=== PATIENT | female | born 1990 | race American Indian/Alaskan Native ===

== ENCOUNTER 2020-11-18 05:21 | Emergency (ER) | payer MEDICAID ==
[2020-11-18] MEDS ORDERED: IBUPROFEN 800 MG TAB PO ONE (05:51)
[2020-11-18 05:54] VITALS: BP 158/91
--- NOTE | 2020-11-18 06:02 | Emergency Department Report ---
Upper Extremity - HPI Stated Complaint: SHOULDER INJURY Time Seen by Provider: 11/18/20 05:51 Upper Extremity: Left Shoulder (Pt states she tripped and fell last night; landed onto left shoulder) Occurred When: 1 Day Mechanism: Fall Severity: severe Symptoms: Yes Pain with Movement, Yes Limited Range of Movement, No Deformity, No Numbness, No Weakness, No Swelling, No Bruising/Ecchymosis, No Laceration or Abrasion Other History: Patient presented to the ER today complaining of left shoulder pain. Patient states that she tripped and fell last night and landed on her left shoulder. Since then she has been having difficulty moving the shoulder due to the pain. He has not taken any medications to help with pain. She reports no numbness, tingling or weakness to the shoulder. She denies any neck pain or head injury. ED Review of Systems ROS: Stated complaint: SHOULDER INJURY Other details as noted in HPI Comment: All other systems reviewed and negative Musculoskeletal: arthralgia ED Past Medical Hx - Past Medical History Previous Medical History?: Yes Hx Hypertension: Yes - Surgical History Past Surgical History?: Yes Additional Surgical History: x2 - Social History Smoking Status: Never Smoker Substance Use Type: None - Medications Home Medications: Home Medications Medication Instructions Recorded Confirmed Last Taken Type Diphenoxylate/Atropine [Lomotil] 1 tab PO QID PRN #20 tablet 02/20/16 Unknown Rx Promethazine [Phenergan TAB] 25 mg PO Q6HR PRN #20 tab 02/20/16 Unknown Rx Promethazine [Phenergan] [address] Q6HR PRN #10 supp.rect 02/20/16 Unknown Rx Cyclobenzaprine [Flexeril] 10 mg PO TID PRN #30 tablet 11/18/20 Unknown Rx Ibuprofen [Motrin] 800 mg PO Q8HR PRN #30 tablet 11/18/20 Unknown Rx Upper Extremity Exam - Exam General: Vital signs noted. No distress. Alert and acting appropriately. Head and Torso: Yes HEENT Abnormality Shoulder Exam: Yes Shoulder Tenderness, Yes Clavicle Tenderness, Yes AC Joint Tenderness, No Normal Range of Motion in Shoulder (Range of motion of the shoulder reduced due to pain), No Shoulder Deformity Arm Exam: No Arm/Humerus Tenderness, No Arm Deformity Elbow: Yes Normal Range of Motion in Elbow, No Elbow Tenderness, No Elbow Deformity Forearm: No Forearm Tenderness, No Forearm Deformity, No Pain with Pronation, No Pain with Supination Wrist: Yes Normal ROM in Wrist, No Wrist Tenderness, No Wrist Deformity, No Snuffbox Tenderness, No Pain with Axial Thumb Compression Hand: Yes Normal ROM in Digit(s), No Hand Tenderness, No Hand Deformity, No Digit Tenderness, No Digit(s) Deformity, No Tendon Dysfunction CMS Exam: No Broken Skin, No Normal Distal Pulses, No Normal Capillary Refill, No Normal Distal Sensation ED Course Vital Signs 11/18/20 05:46 Temperature 99.7 F H Pulse Rate 95 H Respiratory 18 Rate Blood Pressure 158/91 O2 Sat by Pulse 96 Oximetry ED Medical Decision Making - Radiology Data Radiology results: report reviewed Findings [facility] [address] [place] [address] XRay Report Signed Patient: ANTONIO MÉNDEZ MR#: [id number] : 1990 Acct:[id number] Age/Sex: 30 / F ADM Date: 11/18/20 Loc: ED Attending Dr: Ordering Physician: CUATE VARELA MD Date of Service: 11/18/20 Procedure(s): XR shoulder 2+V LT Accession Number(s): [id number] cc: CUATE VARELA MD Fluoro Time In Minutes: LEFT SHOULDER 3 VIEW(S) INDICATION / CLINICAL INFORMATION: left shoulder injury COMPARISON: None available. FINDINGS: BONES / JOINT(S): No acute fracture or subluxation. No significant arthritis. SOFT TISSUES: No significant abnormality. ADDITIONAL FINDINGS: None. Signer Name: Aram Aquino MD Signed: 11/18/2020 6:06 AM Workstation Name: [id number] Transcribed By: DT Dictated By: Nirav Aquino MD Electronically Authenticated By: Nirav Aquino MD Signed Date/Time: 11/18/20605 DD/ 4 TD/TT: Critical care attestation.: If time is entered above; I have spent that time in minutes in the direct care of this critically ill patient, excluding procedure time. ED Disposition Clinical Impression: Shoulder contusion Disposition: DC-01 TO HOME OR SELFCARE Is pt being admited?: No Does the pt Need Aspirin: No Condition: Stable Instructions: Contusion, [id number] Additional Instructions: Use the sling for no more than 2 to 3 days. You can apply ice to the area, 20 minutes on 20 minutes off, for the next 2 days. Take the pain medication as prescribed. Follow-up with software specialist in 7 to 10 days if your symptoms persist. Return to the ER if your symptoms changes or worsens in any way. Prescriptions: Cyclobenzaprine [Flexeril] 10 mg PO TID PRN #30 tablet PRN Reason: Muscle Spasm Ibuprofen [Motrin] 800 mg PO Q8HR PRN #30 tablet PRN Reason: Pain , Severe (7-10) Referrals: MIREYA CAROLINA MD [Staff Physician] - 7-10 days Forms: Work/School Release Form(ED) Time of Disposition: 06:21
--- NOTE | 2020-11-18 06:10 | XRay Report ---
LEFT SHOULDER 3 VIEW(S) INDICATION / CLINICAL INFORMATION: left shoulder injury COMPARISON: None available. FINDINGS: BONES / JOINT(S): No acute fracture or subluxation. No significant arthritis. SOFT TISSUES: No significant abnormality. ADDITIONAL FINDINGS: None. Signer Name: Aram Aquino MD Signed: 11/18/2020 6:06 AM Workstation Name: [id number]
== END 2020-11-18 06:33 | disposition home or self-care (01) ==
LOC: ED 05:21
DX: S40.012A Contusion of left shoulder, initial encounter (principal); I10 Essential (primary) hypertension; Z98.890 Other specified postprocedural states; Z79.1 Long term (current) use of non-steroidal anti-inflammatories (NSAID); Z79.899 Other long term (current) drug therapy; W01.0XXA Fall on same level from slipping, tripping and stumbling without subsequent striking against object, initial encounter; Y93.89 Activity, other specified; Y92.89 Other specified places as the place of occurrence of the external cause; Y99.8 Other external cause status